=== PATIENT | female | born 1995 | race African-American/Black ===

== ENCOUNTER 2016-11-02 11:19 | Emergency (ER) | payer MEDICAID ==
[~2016-11-02] VITALS: Ht 165.1 cm; Wt 58.0 kg
[~2016-11-02 11:19] MED LIST: CIPR500T2 PO; CLAR10CA3; HYDR-3533 PO; Z.0.NO CURRENT MEDS
[2016-11-02 11:21] VITALS: BP 119/66; PULSE 99; RESP 16; TEMP 98.2; O2SAT 98
--- NOTE | 2016-11-02 12:39 | PD ---
HPI Chief Complaint: Injury Time Seen by Provider: 12:34 Travel History International Travel<30 days: No Contact w/Intl Traveler<30days: No Traveled to known affect area: No History of Present Illness HPI 21-year-old female presents to the emergency Department with complaint of pain in the fingers joints of her left hand since yesterday. Denies injury. Denies paresthesias, loss of sensation, decreased range of motion, decreased strength to the affected hand. Pain is worse with movement of the hand. Denies swelling or erythema of the hand or joints. Denies history of gout. Denies fever, chills, nausea, vomiting. Has not taken any medications or tried any treatments to alleviate her symptoms. No known relieving factors. No known allergies. Primary care provider is Dr. Gaitan. No other modifying factors or associated signs and symptoms. [facility] Past Medical History Medical History: Denies Significant Hx Diminished Hearing: No Immunizations Current: Yes Tetanus Vaccination: < 5 Years ?: Not LMP: 10/27/16 Past Surgical History Surgical History: No Previous Surgery Social History Alcohol Use: Yes (OCC) Tobacco Use: Yes (CIGARS/DAILY) Substance Use: No Allergies-Medications (Allergen,Severity, Reaction): Coded Allergies: No Known Allergies (Verified , 11/02/16) Reported Meds & Prescriptions Reported Meds & Active Scripts Active No Active Prescriptions or Reported Medications Review of Systems Except as stated in HPI: all other systems reviewed are Neg Physical Exam Narrative GENERAL: Well-nourished, well-developed female patient, in no acute distress SKIN: Warm and dry. HEAD: Atraumatic. Normocephalic. EYES: Pupils equal and round. No scleral icterus. No injection or drainage. ENT: Mucosa pink and moist. Airway patent. NECK: Trachea midline. CARDIOVASCULAR: Regular rate. RESPIRATORY: No accessory muscle use. GASTROINTESTINAL: Flat. MUSCULOSKELETAL: Left hand is without erythema, edema; without tenderness on palpation to all fingers and joints; with full range of motion at all finger joints and sensory intact to all fingers; Less than 3 second cap refill; fingers are pink and warm; no obvious deformities; full watchguard strength. Left upper extremity supple and non-tense with 2+ radial pulse and sensory intact. No obvious deformities. No clubbing. No cyanosis. NEUROLOGICAL: Awake and alert. Oriented 3. No obvious cranial nerve deficits. Motor grossly within normal limits. Normal speech. PSYCHIATRIC: Appropriate mood and affect; insight and judgment normal. Data Data Last Documented VS Vital Signs Date Time Temp Pulse Resp B/P Pulse Ox O2 Delivery O2 Flow Rate FiO2 11/02/16 11:21 98.2 99 16 119/66 98 Room Air MDM Medical Decision Making Medical Screen Exam Complete: Yes Emergency Medical Condition: No Differential Diagnosis Medical clearance, arthritis, nonspecific left hand pain Narrative Course 21-year-old female with pain to her left hand finger joints. The left hand is normal on examination and with full strength and range of motion. Left hand is without erythema or edema and there are no signs of infection. Left upper extremity is supple and non-tense with 2+ radial pulse and sensory intact. The offered patient a nonnarcotic for pain and she declined at this time. Vital signs are stable and the patient is stable for outpatient follow-up and treatment. The patient has no urgent or emergent medical complaints. There is no emergent or urgent medical need at this time. I instructed the patient to follow up with their primary care provider. A medical screening exam was performed: At the time of evaluation the presenting medical condition was determined not to be of an emergent nature. The patient was given the option of receiving additional care, but declined. Patient was given options for additional community resources from which to obtain care. The Patient Has Been advised to seek medical attention for their presenting complaint. The patient has been advised to return to the ER at any time if an emergent condition develops. Diagnosis Primary Impression: Encounter for medical screening examination Scripts No Active Prescriptions or Reported Meds Condition: Stable Marina Hightower Nov 02, 2016 12:39
== END 2016-11-02 13:24 | disposition left against medical advice (07) ==
LOC: NEPB 11:19
DX: M79.645 Pain in left finger(s) (principal); Z72.0 Tobacco use
CPT/HCPCS: 99281

== ENCOUNTER 2016-11-10 12:38 | Emergency (ER) | payer MEDICAID ==
[~2016-11-10] VITALS: Ht 165.1 cm; Wt 59.0 kg
[2016-11-10 12:40] VITALS: BP 110/71; PULSE 90; RESP 12; TEMP 98.5; O2SAT 97
--- NOTE | 2016-11-10 14:12 | PD ---
HPI Chief Complaint: Medical Clearance Time Seen by Provider: 14:08 Travel History International Travel<30 days: No Contact w/Intl Traveler<30days: No Traveled to known affect area: No History of Present Illness HPI 21-year-old female presents to emergency department requesting a work to return back to work. She was seen here on November 02 with complaint of left hand pain and her work is saying that she needs a work note to return back to work. She has no emergent medical complaints at this time. Reports her hand pain is improved and is fine now. Dr. Gaitan is primary care provider. No known allergies. Primary care provider is Dr. Gaitan. No other modifying factors or associated signs and symptoms. History Social History Alcohol Use: Yes (OCC) Tobacco Use: Yes (CIGARS/DAILY) Allergies-Medications (Allergen,Severity, Reaction): Coded Allergies: No Known Allergies (Verified , 11/02/16) Reported Meds & Prescriptions Reported Meds & Active Scripts Active No Active Prescriptions or Reported Medications Review of Systems Except as stated in HPI: all other systems reviewed are Neg Physical Exam Narrative GENERAL: Well-nourished, well-developed female patient, in no acute distress SKIN: Warm and dry. HEAD: Atraumatic. Normocephalic. EYES: Pupils equal and round. No scleral icterus. No injection or drainage. ENT: Mucosa pink and moist. Airway patent. NECK: Trachea midline. CARDIOVASCULAR: Regular rate. RESPIRATORY: No accessory muscle use. GASTROINTESTINAL: Flat. MUSCULOSKELETAL: No obvious deformities. No clubbing. No cyanosis. No edema. NEUROLOGICAL: Awake and alert. Oriented 3. No obvious cranial nerve deficits. Motor grossly within normal limits. Normal speech. PSYCHIATRIC: Appropriate mood and affect; insight and judgment normal. Data Data Last Documented VS Vital Signs Date Time Temp Pulse Resp B/P Pulse Ox O2 Delivery O2 Flow Rate FiO2 11/10/16 12:40 98.5 90 12 110/71 97 Room Air [facility] Medical Screen Exam Complete: Yes Emergency Medical Condition: No Differential Diagnosis Work release, medical clearance, malingering Narrative Course 21-year-old female presents to emergency department requesting work release note. Vital signs are stable and the patient is stable for outpatient follow-up and treatment. The patient has no urgent or emergent medical complaints. There is no emergent or urgent medical need at this time. I instructed the patient to follow up with their primary care provider. A medical screening exam was performed: At the time of evaluation the presenting medical condition was determined not to be of an emergent nature. The patient was given the option of receiving additional care, but declined. Patient was given options for additional community resources from which to obtain care. The Patient Has Been advised to seek medical attention for their presenting complaint. The patient has been advised to return to the ER at any time if an emergent condition develops. Primary Impression: Encounter for medical screening examination Scripts No Active Prescriptions or Reported Meds Condition: Stable Marina Hightower Nov 10, 2016 14:12
== END 2016-11-10 14:28 | disposition left against medical advice (07) ==
LOC: NEPB 12:38
DX: M79.642 Pain in left hand (principal)
CPT/HCPCS: 99281